=== PATIENT | male | born 1990 | race Two or more races ===

== ENCOUNTER 2025-06-29 04:05 | Emergency (ER) | payer BC ==
[2025-06-29] MEDS: Dexamethasone Sod Phos Preservative Free 10 MG/ML Vial ONE (05:02)
== END 2025-06-29 05:11 | disposition home or self-care (01) ==
LOC: MW.ED 04:05
DX: J06.9 Acute upper respiratory infection, unspecified (principal); B34.9 Viral infection, unspecified; Z79.899 Other long term (current) drug therapy
CPT/HCPCS: 99283; A9270; J1100; Q0164; 99282